=== PATIENT | female | born 1965 | race Caucasian/White ===

== ENCOUNTER 2016-06-15 10:50 | Outpatient (CLI) | payer OTHER ==
[2014-05-24 09:17] VITALS: BP 153/105
[2016-06-15 11:34] LABS: eGFR (African) > 60; eGFR (Non-African) > 60
== END 2016-06-15 10:52 ==
LOC: LAB 10:50
PROVIDERS: ATTEND Family Medicine
DX: Z00.00 Encounter for general adult medical examination without abnormal findings (principal)
CPT/HCPCS: 36415; 80053; 80061

== ENCOUNTER 2017-06-20 10:40 | Outpatient (CLI) | payer OTHER ==
[2014-05-24 09:17] VITALS: BP 153/105
== END 2017-06-20 10:50 ==
LOC: LAB 10:40
PROVIDERS: ATTEND Family Medicine
DX: L65.9 Nonscarring hair loss, unspecified (principal)
CPT/HCPCS: 36415; 84443

== ENCOUNTER 2018-10-08 08:48 | Outpatient (CLI) | payer OTHER ==
[2014-05-24 09:17] VITALS: BP 153/105
[2018-10-08 09:34] LABS: HDL 45 mg/dL (>40); eGFR (Non-African) > 60
== END 2018-10-08 08:50 ==
LOC: LAB 08:48
PROVIDERS: ATTEND Family Medicine
DX: Z13.220 Encounter for screening for lipoid disorders (principal)
CPT/HCPCS: 36415; 80053; 80061